=== PATIENT | female | born 1990 | race Hispanic/Latino ===

== ENCOUNTER 2020-02-02 21:19 | Emergency (ER) | payer OTHER, SELFPAY ==
[2020-02-02 21:44] VITALS: BP 156/92; PULSE 84; RESP 15; TEMP 36.6; O2SAT 100
--- NOTE | 2020-02-02 22:41 | PC.NURSE ---
PT STATES SHE SPOKE WITH HER OBGYN AND WAS TOLD TO GO TO L&D AT [facility] BECAUSE THAT IS WHERE SHE DELIVERED HER BABY RECENTLY.
== END 2020-02-02 22:35 | disposition left against medical advice (07) ==
LOC: ANHED 22:44
DX: Z53.21 Procedure and treatment not carried out due to patient leaving prior to being seen by health care provider (principal)
CPT/HCPCS: 99199

== ENCOUNTER 2020-10-18 17:50 | Emergency (ER) | payer OTHER, SELFPAY ==
[2020-10-18] VITALS (8 sets, daily range): BP systolic 101–129; BP diastolic 63–70; PULSE 94–114; RESP 13–28; TEMP 35.9; O2SAT 97–98
--- NOTE | ~2020-10-18 | XR_ITS ---
EXAMINATION: XR chest 2V EXAM DATE: 10/18/2020 18:54 INDICATION: Left-sided chest pain. History of lupus. TECHNIQUE: Frontal and lateral projections of the chest obtained and reviewed. There is no prior deinsha dy for comparison. FINDINGS: The lungs are clear. There are no pleural effusions. The cardiomediastinal silhouette is within normal limits. There is no pneumothorax suspected. The bones and soft tissues are unremarkab le. IMPRESSION: Normal chest x-ray exam. Reviewed, dictated and finalized at location A. PRESSMAN IMPRESSION: Normal chest x-ray exam.
--- NOTE | 2020-10-18 18:04 | ECG_ITS ---
Measurements Intervals [place] Rate: 106 P: 68 MI: 136 QRS: 35 QRSD: 92 T: 24 QT: 318 QTc: 423 Interpretive Statements SINUS TACHYCARDIA POSSIBLE LEFT ATRIAL ENLARGEMENT INCOMPLETE RIGHT BUNDLE BRANCH BLOCK NONSPECIFIC T-WAVE ABNORMALITY- ANT/INF LEADS ABNORMAL ECG Electronically Signed On 10-19-2020 9:36:32 INSTRUCTOR OF EDUCATION by Gary Rodriguez D.O.
[2020-10-18 18:13] LABS: Basophils Absolute Auto 0.1 K/mm3 (0.0-0.1); Basophils Percent Auto 0.6 % (0.2-1.2); Eosinophils Absolute Auto 0.1 K/mm3 (0-0.3); Eosinophils Percent Auto 1.2 % (0-4.4); Hematocrit 45.2 % (37.0-47.0); Hemoglobin 15.2 g/dL (12.0-15.0); Immature Granulocyte Absolute 0.02 K/mm3 (0.00-0.031); Immature Granulocyte Percent A 0.2 % (0-0.5); Lymphocytes Absolute Auto 2.02 K/mm3 (0.9-3.2); Lymphocytes Percent Auto 22.8 % (18.3-44.2); Mean Corpuscular HGB Conc 33.6 g/dl (32-36); Mean Corpuscular Volume 86.1 fl (80-100); Mean Platelet Volume 11.3 fl (7.4-10.4); Monocytes Absolute Auto 0.8 K/mm3 (0.1-0.6); Monocytes Percent Auto 8.6 % (2.6-8.5); Neutrophils Absolute Auto 5.9 K/mm3 (1.3-6.7); Neutrophils Percent Auto 66.6 % (45.5-73.1); Platelet Count Result 237 k/mm3 (150-375); Red Blood Count 5.25 M/mm3 (4.2-5.4); Red Cell Distribution Width 13.4 % (11.5-14.5); White Blood Count 8.9 K/mm3 (4.5-10.0)
[2020-10-18 18:23] LABS: INR 0.9; Partial Thromboplastin Time 26.2 SECONDS (22.3-36.8); Prothrombin Time 12.3 Seconds (11.1-14.7)
[2020-10-18 18:24] LABS: Anion Gap 9 mmol/L (8-16); Blood Urea Nitrogen 14 mg/dL (7-17); Calcium 9.8 mg/dL (8.4-10.2); Carbon Dioxide 25 mmol/L (22-30); Chloride 104 mmol/L (98-107); Estimated CRCL calculation 96 ml/min; Estimated Glomerular Filt Rate > 60; Glucose 114 mg/dL (65-105); Potassium 4.1 mmol/L (3.4-5.0); Sodium 138 mmol/L (137-145)
[2020-10-18 18:36] LABS: Troponin I < 0.012 ng/mL (0.000-0.034)
[2020-10-18 19:32] LABS: D Dimer 0.42 ug/mL (<0.48)
[2020-10-18 19:38] LABS: Add Urine Microscopic? YES; Appearance Urine Clear (Clear); Bacteria Urine Trace /hpf; Bilirubin Urine Negative (Negative); Blood Urine Negative (Negative); Color Urine Colorless (Yellow); Glucose Urine UA Negative (Negative); Ketones Urine Negative (Negative); Leukocyte Esterase Ur Trace LEU/UL (Negative); Nitrate Urine Negative (Negative); Protein Urine Negative (Negative); RBC Urine 0-2 /hpf (0-2); Squamous Epithelial Cell Urine Rare /hpf (Few); Urobilinogen Urine Negative mg/dL (<2.0); WBC Urine 0-3 /hpf
--- NOTE | 2020-10-18 20:05 | PC.NURSE ---
Pt refuses aspirin po, states I'm not supposed to take with my citalopram, and no nsaids .
--- NOTE | 2020-10-18 20:17 | ED.GENADULT ---
HPI - General Adult General Chief complaint: Chest Pain Stated complaint: chest pain, left shoulder pain Time Seen by Provider: 10/18/20 19:22 Source: patient History of Present Illness HPI narrative: Patient is a 30 y/o female complaining of left sided chest pain since yesterday. She describes her pain as a pressure and rates it as 2/10. She states that flexing her left arm aggravates her pain. She also has some left arm pain and left back pain. She has no SOB, cough or fever. Related Data Home Medications Medication Instructions Recorded Confirmed Plaquenil 400 mg 10/18/20 10/18/20 clonazepam 10/18/20 escitalopram oxalate [Lexapro] mg 10/18/20 lisinopril 10/18/20 Allergies Allergy/AdvReac Type Severity Reaction Status Date / Time banana Allergy Unknown Verified 10/18/20 19:26 iodine Allergy Itching Verified 10/18/20 19:26 latex Allergy Unknown Verified 10/18/20 19:26 Penicillins Allergy Itching Verified 10/18/20 19:26 shellfish derived Allergy Unknown Verified 10/18/20 19:26 tree nut Allergy Unknown Verified 10/18/20 19:26 Sulfa (Sulfonamide AdvReac Unknown Verified 10/18/20 19:26 Antibiotics) Review of Systems Constitutional: Constitutional: Denies chills, Denies fever(s), Denies headache(s) and Denies weakness Eyes: Eyes: Denies blurry vision ENT: Denies headache(s) and Denies neck pain Cardiovascular: Cardiovascular: Reports as per HPI, Reports chest pain and Denies dyspnea Respiratory: Respiratory: Denies cough and Denies dyspnea Gastrointestinal: Gastrointestinal: Denies abdominal pain, Denies diarrhea, Denies nausea and Denies vomiting Genitourinary: Genitourinary: Denies hematuria and Denies dysuria Musculoskeletal: Musculoskeletal: Reports as per HPI, Denies back pain and Denies neck pain Neurologic: Denies headache(s) and Denies weakness [facility] Social History Social History Gender identity (if verbalized by the patient): Female Exam Const: General: no acute distress and well developed Orientation/consciousness: oriented to person, oriented to place, oriented to time and patient oriented x3 HENMT: Head: normocephalic Ears: external ears normal General nose exam: Normal external nose present Eyes: General: appearance normal, both eyes and all related structures Conjunctivae: conjunctivae normal Neck: Neck: normal visual inspection and full ROM Chest: Chest palpation & inspection: normal inspection of the chest and no tenderness Resp: Effort & Inspection: normal respiratory effort Auscultation: clear to auscultation bilaterally Cardio: Rate: regular rate Rhythm: regular rhythm GI: GI Palp: No abdominal tenderness and Yes Soft to palpation Skin: General skin exam: normal color and turgor normal Neuro: General: oriented to person, oriented to place, oriented to time and patient oriented x3 Cognition (Neuro): normal cognition Extrem: General: normal to inspection, full ROM and no pedal edema Psych: Appearance: grossly normal Mental Status: mental status grossly normal Affect: normal affect Course Vital Signs Vital signs: Vital Signs Temperature 35.9 C L 10/18/20 17:59 Pulse Rate 114 H 10/18/20 17:59 Respiratory Rate 18 10/18/20 17:59 Blood Pressure 129/69 10/18/20 17:59 Pulse Oximetry 98 10/18/20 17:59 Temperature 35.9 C L 10/18/20 17:59 Pulse Rate 94 10/18/20 21:16 Respiratory Rate 18 10/18/20 21:16 Blood Pressure 101/67 10/18/20 21:16 Pulse Oximetry 97 10/18/20 21:16 Medical Decision Making Vital Signs Vital Signs: Vital Signs Temperature 35.9 C L 10/18/20 17:59 Pulse Rate 114 H 10/18/20 17:59 Respiratory Rate 18 10/18/20 17:59 Blood Pressure 129/69 10/18/20 17:59 Pulse Oximetry 98 10/18/20 17:59 Temperature 35.9 C L 10/18/20 17:59 Pulse Rate 94 10/18/20 21:16 Respiratory Rate 18 10/18/20 21:16 Blood Pressure 101/67 10/18/20
[2020-10-18 21:28] LABS: Troponin I < 0.012 ng/mL (0.000-0.034)
== END 2020-10-18 21:38 | disposition home or self-care (01) ==
PROVIDERS: Emergency Provider Emergency Medicine
DX: R07.89 Other chest pain (principal); R00.0 Tachycardia, unspecified; I45.10 Unspecified right bundle-branch block; R94.31 Abnormal electrocardiogram [ECG] [EKG]
CPT/HCPCS: 36415; 71046; 80048; 81001; 81025; 84484; 85025; 85380; 85610; 85730; 93005; 99284

== ENCOUNTER → 2021-04-01 07:39 | Outpatient (CLI) | payer OTHER, SELFPAY ==
--- NOTE | ~2021-04-01 | XR_ITS ---
EXAMINATION: XR chest 2V DATE: 04/01/2021 12:12 INDICATION: Systemic lupus erythematous. Chest pain. TECHNIQUE: PA and lateral views of the chest were obtained. COMPARISON: Chest radiograph dated 10/18/2020 FINDINGS: The lungs remain clear with no focal airspace opacities, pulmonary edema, pleural effusion or pneumot horax. The cardiomediastinal silhouette is normal. Visualized bones and soft tissues are unremarkable . IMPRESSION: 1. Normal chest radiograph. Reviewed, dictated and finalized at location A. IMPRESSION: 1. Normal chest radiograph.
== END ==
PROVIDERS: Visit Provider Physician Assistant Medical
DX: M32.9 Systemic lupus erythematosus, unspecified (principal); R07.89 Other chest pain; Z79.899 Other long term (current) drug therapy
CPT/HCPCS: 71046

== ENCOUNTER 2021-04-03 00:35 | Emergency (ER) | payer OTHER, SELFPAY ==
[2021-04-03] VITALS (13 sets, daily range): BP systolic 109–121; BP diastolic 62–74; PULSE 91–127; RESP 15–23; TEMP 36.6–36.8; O2SAT 99–100
--- NOTE | ~2021-04-03 | CT_ITS ---
EXAMINATION: CTA chest PE abdomen pel DATE: 04/03/2021 04:35 INDICATION: Chest and abdominal pain TECHNIQUE: Computed tomography angiography (CTA) of the chest was performed with 100 mL Omnipaque-350 intravenous contrast timed to evaluate the pulmonary arteries. Subsequent postcontrast images of the abdomen and pelvis are obtained. Coronal maximum intensity projection 3D-reconstructions were create d by the technologist. The dose-length product (DLP) was 621.40 mGy-cm. Automated exposure control an d iterative reconstruction technique were employed. COMPARISON: None. FINDINGS: CTA CHEST: The pulmonary arteries are fairly well opacified. No pulmonary embolism is identified. The lungs are free of acute opacities. There is no pleural effusion or pneumothorax. No pathologically e nlarged thoracic lymph nodes are identified. The heart size is normal. ABDOMEN/PELVIS CT: The liver, spleen, pancreas, gallbladder, and adrenal glands are normal. The kidne ys are unremarkable. The appendix is normal. No pathologically enlarged abdominal or pelvic lymph nod es are identified. There is no free intraperitoneal gas or evidence of bowel obstruction. IMPRESSION: 1. No pulmonary embolism or acute cardiopulmonary abnormality. 2. No acute findings in the abdomen or pelvis. Reviewed, dictated and finalized at location A.
--- NOTE | 2021-04-03 00:42 | ECG_ITS ---
Measurements Intervals [place] Rate: 102 P: 66 [place]: 144 QRS: 50 QRSD: 92 T: 16 QT: 345 QTc: 451 Interpretive Statements SINUS TACHYCARDIA INCOMPLETE RIGHT BUNDLE BRANCH BLOCK NONSPECIFIC T-WAVE ABNORMALITY- ANTEROLAT/INF LEADS ABNORMAL ECG Electronically Signed On 04-03-2021 6:23:52 CDT by Gary Rodriguez D.O.
[2021-04-03 01:02] LABS: Basophils Percent Auto 0.2 % (0.2-1.2); Eosinophils Absolute Auto 0.1 K/mm3 (0-0.3); Eosinophils Percent Auto 1.1 % (0-4.4); Hematocrit 43.9 % (37.0-47.0); Immature Granulocyte Absolute 0.05 K/mm3 (0.00-0.031); Immature Granulocyte Percent A 0.4 % (0-0.5); Lymphocytes Absolute Auto 0.74 K/mm3 (0.9-3.2); Lymphocytes Percent Auto 6.4 % (18.3-44.2); Mean Corpuscular HGB Conc 31.9 g/dl (32-36); Mean Corpuscular Hemoglobin 28.5 pg (26-34); Mean Corpuscular Volume 89.2 fl (80-100); Mean Platelet Volume 10.7 fl (7.4-10.4); Monocytes Absolute Auto 0.6 K/mm3 (0.1-0.6); Monocytes Percent Auto 5.4 % (2.6-8.5); Neutrophils Absolute Auto 9.9 K/mm3 (1.3-6.7); Neutrophils Percent Auto 86.5 % (45.5-73.1); Platelet Count Result 230 k/mm3 (150-375); Red Blood Count 4.92 M/mm3 (4.2-5.4); Red Cell Distribution Width 13.2 % (11.5-14.5); White Blood Count 11.5 K/mm3 (4.5-10.0)
[2021-04-03 01:14] LABS: Alanine Aminotransferase 19 U/L (4-35); Albumin Level 4.7 g/dL (3.5-5.1); Alkaline Phosphatase 50 U/L (38-126); Anion Gap 10 mmol/L (8-16); Aspartate Amino Transferase 29 U/L (14-36); Bilirubin,Total 0.4 mg/dL (0.2-1.3); Blood Urea Nitrogen 10 mg/dL (7-17); Calcium 9.7 mg/dL (8.4-10.2); Carbon Dioxide 26 mmol/L (22-30); Chloride 101 mmol/L (98-107); Estimated CRCL calculation 95 ml/min; Estimated Glomerular Filt Rate > 60; Glucose 124 mg/dL (65-110); Lipase 45 U/L (23-300); Potassium 3.7 mmol/L (3.4-5.0); Sodium 137 mmol/L (137-145)
[2021-04-03 03:31] LABS: Add Urine Microscopic? YES; Appearance Urine Turbid (Clear); Bilirubin Urine Negative (Negative); Blood Urine Negative (Negative); Glucose Urine UA Negative (Negative); Ketones Urine Negative (Negative); Leukocyte Esterase Ur Negative LEU/UL (Negative); Mucus Urine Heavy /lpf; Nitrate Urine Negative (Negative); Protein Urine 1+ mg/dL (Negative); Specific Grav Ur 1.028 (1.001-1.035); Urobilinogen Urine Negative mg/dL (<2.0)
[2021-04-03 03:34] LABS: Color Urine Yellow (Yellow)
[2021-04-03 03:38] LABS: D Dimer 0.58 ug/mL (<0.48)
[2021-04-03 03:45] LABS: Troponin I < 0.012 ng/mL (0.000-0.034)
[2021-04-03] MEDS: diphenhydrAMINE HCl INJ 50 MG/ML VIAL IV PUSH (04:04)
--- NOTE | 2021-04-03 05:29 | ED.GENADULT ---
HPI - General Adult General Chief complaint: Nausea/Vomiting/Diarrhea Stated complaint: n/v Time Seen by Provider: 04/03/21 02:37 History of Present Illness HPI narrative: Patient 31-year-old female presents emerged from with chief complaint of chest/back pain and abdominal pain nausea vomiting and diarrhea. Patient states that she has history of lupus and was seen in the emergency department recently and had back discomfort patient is seen by her longwall shearer operator who recommended that she follow-up with cardiology she does have an appointment scheduled but the patient still concerned that she is having discomfort between her shoulder blades. Patient states this evening she started having nausea and vomiting and had some diarrhea as well. The patient states that while she was here she was concerned because she has history of lupus that she may have a blood clot in her lungs patient reports that she has history of contrast-induced nausea and vomiting and reports that she has been able to do contrast when she is pretreated with Benadryl. Related Data Home Medications Medication Instructions Recorded Confirmed Plaquenil 400 mg 10/18/20 10/18/20 clonazepam 10/18/20 escitalopram oxalate [Lexapro] mg 10/18/20 Allergies Allergy/AdvReac Type Severity Reaction Status Date / Time banana Allergy Unknown Verified 10/18/20 19:26 iodine Allergy Itching Verified 10/18/20 19:26 latex Allergy Unknown Verified 10/18/20 19:26 Penicillins Allergy Itching Verified 10/18/20 19:26 shellfish derived Allergy Unknown Verified 10/18/20 19:26 tree nut Allergy Unknown Verified 10/18/20 19:26 Sulfa (Sulfonamide AdvReac Unknown Verified 10/18/20 19:26 Antibiotics) Review of Systems Review of Systems: A 10 system review of systems was completed on the patient and is negative except for what is stated in the HPI. Nursing and ancillary documentation was reviewed. [facility] Social History Social History Gender identity (if verbalized by the patient): Female Exam Narrative: GENERAL: Well-appearing, well-nourished, and in no acute distress. HEAD: Normocephalic, atraumatic. EYES: PERRLA and EOMI. ENT: Nares clear, no rhinorrhea or epistaxis. Mucous membranes moist. NECK: Supple. CHEST: Clear to auscultation. No respiratory distress. HEART: Regular rate and rhythm. No murmur heard. Normal peripheral pulses. ABDOMEN: Soft, nontender, nondistended, normal active bowel sounds. EXTREMITIES: Normal range of motion. No edema. SKIN: Warm, dry, no rash. NEURO: No focal deficits. Alert and oriented x3. PSYCH: Normal mood and affect. Course Vital Signs Vital signs: Vital Signs Temperature 36.6 C 04/03/21 00:43 Pulse Rate 110 H 04/03/21 00:43 Respiratory Rate 20 04/03/21 00:43 Blood Pressure 121/62 04/03/21 00:43 Pulse Oximetry 100 04/03/21 00:43 Temperature 36.6 C 04/03/21 00:43 Pulse Rate 110 H 04/03/21 00:43 Respiratory Rate 20 04/03/21 00:43 Blood Pressure 121/62 04/03/21 00:43 Pulse Oximetry 100 04/03/21 00:43 Medical Decision Making Vital Signs Vital Signs: Vital Signs Temperature 36.6 C 04/03/21 00:43 Pulse Rate 110 H 04/03/21 00:43 Respiratory Rate 20 04/03/21 00:43 Blood Pressure 121/62 04/03/21 00:43 Pulse Oximetry 100 04/03/21 00:43 Temperature 36.6 C 04/03/21 00:43 Pulse Rate 110 H 04/03/21 00:43 Respiratory Rate 20 04/03/21 00:43 Blood Pressure 121/62 04/03/21 00:43 Pulse Oximetry 100 04/03/21 00:43 Lab Data Result diagrams: 04/03/21 00:56 04/03/21 00:56 Labs: Lab Results 04/03/21 04/03/21 04/03/21 Range/Units 00:56 00:56 03:15 WBC 11.5 H (4.5-10.0) K/mm3 RBC 4.92 (4.2-5.4) M/mm3 Hgb 14.0 (12.0-15.0) g/dL Hct 43.9 (37.0-47.0) % MCV 89.2 (80-100) fl MCH 28.5 (26-34) pg MCHC 31.9 L (32-36) g/dl RDW 13.2 (11.
[2021-04-03] MEDS: KETOROLAC 30 MG/ML VIAL (*BKC) IV PUSH (05:46)
[2021-04-03] MEDS: METOCLOPRAMIDE HCL INJ 10 MG/2 ML VIAL IV PUSH (05:46)
== END 2021-04-03 05:55 | disposition home or self-care (01) ==
PROVIDERS: Emergency Provider Emergency Medicine; PCP Family Medicine
DX: K52.9 Noninfective gastroenteritis and colitis, unspecified (principal); R07.89 Other chest pain; R00.0 Tachycardia, unspecified; I45.10 Unspecified right bundle-branch block; R94.31 Abnormal electrocardiogram [ECG] [EKG]
CPT/HCPCS: 36415; 71275; 74177; 80053; 81001; 81025; 83690; 84484; 85025; 85380; 93005; 96374; 96375; 99284; J1200; J1885; J2765; Q9967

== ENCOUNTER 2021-11-23 14:24 | Emergency (ER) | payer OTHER, SELFPAY ==
--- NOTE | ~2021-11-23 | US_ITS ---
EXAMINATION: US venous doppler [facility] DATE: 11/23/2021 16:23 INDICATION: Left lower limb swelling TECHNIQUE: Castaneda scale images without and with compression and Doppler images of the left lower extrem ity veins were obtained. COMPARISON: None FINDINGS: The left common femoral vein, profunda femoral vein, femoral vein, popliteal vein, peroneal trunk, posterior tibial veins, and greater saphenous vein are patent. IMPRESSION: 1. Patent left lower extremity veins. No evidence of deep venous thrombosis. Reviewed, dictated and finalized at location B.
[2021-11-23 14:40] VITALS: BP 136/72; PULSE 100; RESP 16; TEMP 36.8; O2SAT 99
[2021-11-23 15:21] VITALS: BP 130/78; PULSE 88; RESP 16; TEMP 36.4; O2SAT 100
--- NOTE | 2021-11-23 15:42 | ED.LOWEXIN ---
HPI - Extremity Injury (Lower) General Chief Complaint: Extremity Injury, Lower Stated Complaint: L leg pain, swelling Time Seen by Provider: 11/23/21 15:25 History of Present Illness HPI Narrative: 31 y/o female presents to the ER today for concerns about DVT. She says that she was having medial left knee pain yesterday and noticed swelling to medial leg. She called her PCP today and he wanted her to get checked for DVT in the ER. She has a history of lupus. The pain is better today. Related Data Home Medications Medication Instructions Recorded Confirmed Plaquenil 400 mg 10/18/20 10/18/20 clonazepam 10/18/20 escitalopram oxalate [Lexapro] mg 10/18/20 Allergies Allergy/AdvReac Type Severity Reaction Status Date / Time banana Allergy Unknown Verified 10/18/20 19:26 iodine Allergy Itching Verified 10/18/20 19:26 latex Allergy Unknown Verified 10/18/20 19:26 Penicillins Allergy Itching Verified 10/18/20 19:26 shellfish derived Allergy Unknown Verified 10/18/20 19:26 tree nut Allergy Unknown Verified 10/18/20 19:26 Sulfa (Sulfonamide AdvReac Unknown Verified 10/18/20 19:26 Antibiotics) Review of Systems Eyes: Eyes: Reports no additional eye complaints ENT: Reports system reviewed and no additional complaints, except as documented, Denies dizziness and Denies sore throat Cardiovascular: Cardiovascular: Reports no additional cardiovascular complaints and Denies chest pain Respiratory: Respiratory: Denies cough, Denies dyspnea and Denies wheezing Gastrointestinal: Gastrointestinal: Denies abdominal pain, Denies diarrhea, Denies nausea and Denies vomiting Genitourinary: Genitourinary: Reports no additional female genitourinary complaints Musculoskeletal: Musculoskeletal: Reports as per HPI and Reports arthralgias Integumentary/Breasts: Skin/Breast: Denies rash Neurologic: Reports system reviewed and no additional complaints, except as documented Psychiatric: Psychiatric: Reports no additional psychiatric complaints Endocrine: Endocrine: Reports no additional endocrine complaints Hematologic/Lymphatic: Hematologic/Lymphatic: Reports no additional hematologic/lymphatic complaints Allergic/Immunologic: Allergic/Immunologic: Reports no additional allergic/immunologic complaints PMFSH Social History Social History Gender identity (if verbalized by the patient): Female Exam Const: General: no acute distress Orientation/consciousness: patient oriented x3 HENMT: Head: normal to inspection Eyes: Conjunctivae: conjunctivae normal Pupils: Equal, round and reactive pupils present Neck: Neck: normal visual inspection Chest: Chest palpation & inspection: normal inspection of the chest Resp: Effort & Inspection: normal respiratory effort Auscultation: clear to auscultation bilaterally Cardio: Rate: regular rate Rhythm: regular rhythm : General: Yes no CVA tenderness Skin: General skin exam: normal color Rashes: no rashes Neuro: General: patient oriented x3 and moves all extremities Extrem: General: normal to inspection Other: left knee has mild swelling medially, no lower leg swelling that is significant. No erythema. No tenderness, normal ROM Psych: Mental Status: mental status grossly normal Affect: normal affect Course Vital Signs Vital signs: Vital Signs Temperature 36.8 C 11/23/21 14:40 Pulse Rate 100 11/23/21 14:40 Respiratory Rate 16 11/23/21 14:40 Blood Pressure 136/72 11/23/21 14:40 Pulse Oximetry 99 11/23/21 14:40 Temperature 36.4 C 11/23/21 15:21 Pulse Rate 99 11/23/21 17:10 Respiratory Rate 16 11/23/21 17:10 Blood Pressure 130/70 11/23/21 17:10 Pulse Oximetry 100 11/23/21 17:10 MDM - Extremity Injury (Lower) Differential Diagnosis Differential diagnosis: Likely other (knee sprain, knee pain, DVT) Imaging Data Radiologist's impression: no DVT Discharge Plan D
[2021-11-23 17:10] VITALS: BP 130/70; PULSE 99; RESP 16; O2SAT 100
== END 2021-11-23 17:13 | disposition home or self-care (01) ==
PROVIDERS: Emergency Provider Nurse Practitioner Family; PCP Family Medicine
DX: M79.662 Pain in left lower leg (principal); M79.89 Other specified soft tissue disorders
CPT/HCPCS: 93971; 99284